=== PATIENT | male | born 1960 | race Caucasian/White ===

== ENCOUNTER 2019-11-20 09:15 | Emergency (ER) | payer MEDICARE, MEDICAID ==
[~2019-11-20] VITALS: Ht 162.6 cm; Wt 59.4 kg
--- NOTE | 2019-11-20 09:50 | EKG ---
[address] [address] Test Date: 2019-11-20 Test Time: 09:21:30 Pat Name: MILAGRO BANKSTAYLABrennan Department: Room: Gender: M [employer]: TOMMIE : 1960 Requested By: AC JOHNSTON Order Number: [id number] Reading MD: Measurements Intervals Dougherty Rate: 69 P: 46 IL: 204 QRS: 69 QRSD: 88 T: 50 QT: 406 QTc: 437 Interpretive Statements SINUS RHYTHM INCOMPLETE RIGHT BUNDLE BRANCH BLOCK OTHERWISE NORMAL ECG RI6.02 Compared to ECG 11/20/2019 08:49:40 Incomplete right bundle-branch block now present
--- NOTE | 2019-11-20 10:00 | PHYS DOC ---
General Adult EDM: Chief Complaint: SYNCOPE HPI: HPI: 59-year-old male presents with fall at home. Patient does not really answer my questions. He states that he fell but denies syncope. I got out of him. Report from family is that he has had at least a couple syncopal episodes lately. They are not sure if he had one today when he fell. He has skin tears on his left arm and top of his head. The patient is unable to tell me how he got these wounds. Review of Systems: Review of Systems: Constitutional: Denies fever or chills Eyes: Denies change in visual acuity HENT: Denies nasal congestion or sore throat Respiratory: Denies cough or shortness of breath Cardiovascular: Denies chest pain or edema GI: Denies abdominal pain, nausea, vomiting, bloody stools or diarrhea : Denies dysuria Musculoskeletal: Denies back pain or joint pain Integument: Multiple skin tears Neurologic: Denies headache, focal weakness or sensory changes Endocrine: Denies polyuria or polydipsia Lymphatic: Denies swollen glands Psychiatric: Denies depression or anxiety Heart Score: Risk Factors: Risk Factors: DM, Current or recent (<one month) smoker, HTN, HLP, family history of CAD, obesity. Risk Scores: Score 0 - 3: 2.5% MACE over next 6 weeks - Discharge Home Score 4 - 6: 20.3% MACE over next 6 weeks - Admit for Clinical Observation Score 7 - 10: 72.7% MACE over next 6 weeks - Early Invasive Strategies Allergies: Allergies: Allergies Coded Allergies Type Severity Reaction Last Updated Verified No Known Drug Allergies 11/20/19 No Physical Exam: PE: Constitutional: Well developed, well nourished, no acute distress, non-toxic appearance. [] HENT: Normocephalic, atraumatic, bilateral external ears normal, oropharynx moist, no oral exudates, nose normal. [] Eyes: PERRLA, EOMI, conjunctiva normal, no discharge. [] Neck: Normal range of motion, no tenderness, supple, no stridor. [] Cardiovascular: Heart rate regular rhythm, no murmur [] Lungs & Thorax: Bilateral breath sounds clear to auscultation [] Abdomen: Bowel sounds normal, soft, no tenderness, no masses, no pulsatile mas ses. [] Skin: Skin tears of the superior scalp, bilateral arms. [] Back: No tenderness, no CVA tenderness. [] Extremities: No tenderness, no cyanosis, no clubbing, ROM intact, no edema. [] Neurologic: Alert, unable to answer all of my questions.] Psychologic: Affect normal, judgement normal, mood normal. [] EKG: EKG: Sinus rhythm, rate 69, normal axis, no ST elevations or depressions. [] Radiology/Procedures: Radiology/Procedures: [] Impressions: EXAM: CT Head without IV contrast INDICATION: Reason: fall / Spl. Instructions: / History: TECHNIQUE: Multi-detector row CT images were obtained of the head without the use of IV contrast. All CT scans performed at this facility utilize dose optimization techniques as appropriate to the exam, including the following: Automated exposure control and adjustment of the mA and/or KV according to patient size (this includes techniques or standardized protocols for targeted exams where dose is indication/reason for exam). COMPARISON: None FINDINGS: BRAIN PARENCHYMA: No evidence of acute intraparenchymal hemorrhage or infarct. No abnormal parenchymal density or mass. However, there is mass effect with [id number] midline shift of 1.6 cm due to an acute left extra-axial mass as described below. VENTRICLES & EXTRA-AXIAL SPACES: Ventricles show deformity of the left lateral ventricle and contralateral dilation of the anterior right lateral ventricle with slitlike narrowing of the third ventricle. There is mild effacement of the left-sided prepontine cistern that could reflect early transtentorial herniation. 'S a 2.6 cm deep mixed density fluid collection over the left cerebral hemisphere is present. ORBITS: Orbital contents are unremarkable. SINUSES: Visualized paranasal sinuses and mastoid air cells are clear. OSSEOUS & SOFT TISSUES: Calvarium and skull base are intact. IMPRESSION: Large hyperacute left subdural hematoma measuring 2.6 cm in depth causing subfalcine and possible early transtentorial herniation with ventricular entrapment as described. FOR INTERNAL CODING PURPOSES Critical result: Findings discussed with AC JOHNSTON at 11/20/2019 10:21 AM. RESULT CODE: (C) Electronically signed by: Amber Loving MD (11/20/2019 10:24 AM) [id number] DICTATED AND SIGNED BY: AMBER LOVING MD DATE: 11/20/19 1024 CC: KAYLIE CRANDALL MD; AC JOHNSTON DO ~ Course & Med Decision Making: Course & Med Decision Making Pertinent Labs and Imaging studies reviewed. (See chart for details) I talked with the patient's and she told me that he fell this morning and hit his head in the bathroom. That is when he sustained his skin tears. He was very tired after that and took a nap. When he woke up later, he fell again on the floor and they decided bring the emergency room. I reviewed the head CT and the patient has a large subdural hematoma of 2.6 cm deep with 1.6 mm of midline shift. He does not currently have uncal herniation. Family further told me that he has an alcohol problem but is not on a blood thinner. He takes a baby aspirin daily. We were transferring the patient emergently to [facility], the trauma center. Dr. Jones has accepted the patient for transfer. He will go by emergent ground ambulance. 41 minutes of critical care time was spent on this patient exclusive of other billable procedures. Critical diagnosis. [] Dragon Disclaimer: Dragon Disclaimer: This electronic medical record was generated, in whole or in part, using a voice recognition dictation system. Departure Departure: Impression: Primary Impression: Subdural hematoma Disposition: XFER SHT-TRM HOSP Condition: GUARDED Referrals: KAYLIE CRANDALL MD (PCP) Justification of Admission: Justification of Admission: Justification of Admission Dx: Yes Comments: Traumatic subdural hematoma AC JOHNSTON DO Nov 20, 2019 10:00
[2019-11-20 10:20] VITALS: BP 168/90
--- NOTE | 2019-11-20 10:27 | RAD ---
EXAM: CT Head without IV contrast INDICATION: Reason: fall / Spl. Instructions: / History: TECHNIQUE: Multi-detector row CT images were obtained of the head without the use of IV contrast. All CT scans performed at this facility utilize dose optimization techniques as appropriate to the exam, including the following: Automated exposure control and adjustment of the mA and/or KV according to patient size (this includes techniques or standardized protocols for targeted exams where dose is indication/reason for exam). COMPARISON: None FINDINGS: BRAIN PARENCHYMA: No evidence of acute intraparenchymal hemorrhage or infarct. No abnormal parenchymal density or mass. However, there is mass effect with [id number] midline shift of 1.6 cm due to an acute left extra-axial mass as described below. VENTRICLES & EXTRA-AXIAL SPACES: Ventricles show deformity of the left lateral ventricle and contralateral dilation of the anterior right lateral ventricle with slitlike narrowing of the third ventricle. There is mild effacement of the left-sided prepontine cistern that could reflect early transtentorial herniation. 'S a 2.6 cm deep mixed density fluid collection over the left cerebral hemisphere is present. ORBITS: Orbital contents are unremarkable. SINUSES: Visualized paranasal sinuses and mastoid air cells are clear. OSSEOUS & SOFT TISSUES: Calvarium and skull base are intact. IMPRESSION: Large hyperacute left subdural hematoma measuring 2.6 cm in depth causing subfalcine and possible early transtentorial herniation with ventricular entrapment as described. FOR INTERNAL CODING PURPOSES Critical result: Findings discussed with AC JOHNSTON at 11/20/2019 10:21 AM. RESULT CODE: (C) Electronically signed by: Angel Loving MD (11/20/2019 10:24 AM) [id number]
--- NOTE | 2019-11-20 10:28 | RAD ---
EXAM: CHEST 1 VIEW History: Fall COMPARISON: None available. TECHNIQUE: Single portable radiograph of the chest FINDINGS: The cardiac silhouette is unremarkable. The lungs are clear bilaterally. The costophrenic sulci are clear and well demarcated. IMPRESSION: No radiographic evidence of an acute cardiopulmonary process. Electronically signed by: Demetri Aiken MD (11/20/2019 10:26 AM) [id number]
[2019-11-20 11:13] LABS: BASO # 0.1 x10^3/uL (0.0-0.2); BASO % 2 % (0-3); EOS # 0.3 x10^3/uL (0.0-0.7); EOS % 3 % (0-3); HEMATOCRIT 36.3 % (39.0-53.0); LYMPH # 3.9 x10^3/uL (1.0-4.8); LYMPH % 48 % (24-48); MEAN CORPUSCULAR HEMOGLOBIN 31 pg (25-35); MEAN CORPUSCULAR HGB CONC 33 g/dL (31-37); MEAN CORPUSCULAR VOLUME 95 fL (79-100); MONO % 12 % (0-9); NEUT # 2.9 x10^3uL (1.8-7.7); NEUT % 35 % (31-73); PLATELET COUNT 145 x10^3/uL (140-400); RED BLOOD COUNT 3.83 x10^6/uL (4.30-5.70); RED CELL DISTRIBUTION WIDTH 15.4 % (11.5-14.5); WHITE BLOOD COUNT 8.2 x10^3/uL (4.0-11.0)
[2019-11-20 11:25] LABS: ALBUMIN 3.4 g/dL (3.4-5.0); ALBUMIN/GLOBULIN RATIO 0.9 (1.0-1.7); CALCIUM 8.2 mg/dL (8.5-10.1); CREATININE 0.6 mg/dL (0.7-1.3); POTASSIUM 3.7 mmol/L (3.5-5.1); TOTAL BILIRUBIN 0.3 mg/dL (0.2-1.0); TOTAL PROTEIN 7.3 g/dL (6.4-8.2)
== END 2019-11-20 10:28 | disposition short-term general hospital (02) ==
LOC: ER 09:15
DX: S06.5X9A Traumatic subdural hemorrhage with loss of consciousness of unspecified duration, initial encounter (principal); W18.39XA Other fall on same level, initial encounter; Y93.89 Activity, other specified; Y92.098 Other place in other non-institutional residence as the place of occurrence of the external cause; Y99.8 Other external cause status
CPT/HCPCS: 36415; 70450; 71045; 80053; 85025; 85610; 85730; 93005; 99291; G0480